=== PATIENT | female | born 1940 | race Caucasian/White ===

== ENCOUNTER → 2016-12-03 | Outpatient (CLI) | payer MEDICARE, BC | LOC: MW.CHFP 09:19 | PROVIDERS: ATTEND Emergency Medicine | DX: I10 Essential (primary) hypertension (principal); E78.5 Hyperlipidemia, unspecified; E11.9 Type 2 diabetes mellitus without complications; E03.9 Hypothyroidism, unspecified | CPT/HCPCS: 36415; 80053; 80061; 82044; 83036; 84443 ==

== ENCOUNTER → 2016-12-04 | Outpatient (CLI) | payer MEDICARE, BC | LOC: MW.CHFP 08:00 | PROVIDERS: ATTEND Emergency Medicine | DX: E11.9 Type 2 diabetes mellitus without complications (principal); I10 Essential (primary) hypertension; E03.9 Hypothyroidism, unspecified; E79.0 Hyperuricemia without signs of inflammatory arthritis and tophaceous disease | CPT/HCPCS: 99214 ==

== ENCOUNTER 2018-05-16 09:57 | Emergency (ER) | payer MEDICARE, BC ==
[2018-05-16] MEDS ORDERED: Sodium Chloride 0.9% 10 ML Syringe FLUSH PRN (10:17)
[2018-05-16] MEDS ORDERED: Sodium Chloride 0.9% 2.5 ML Syringe FLUSH PRN (10:17)
[2018-05-16] MEDS ORDERED: Metoprolol Tartrate 5 MG in Sodium Chloride 0.9% 50 ML IV ONE (10:18)
--- NOTE | 2018-05-16 10:24 | EDM.PDOC ---
ED HPI GENERAL MEDICAL PROBLEM - General Chief Complaint: Cardiovascular Problem Stated Complaint: HEART ISSUES Time Seen by Provider: 05/16/18 10:11 Source of Information: Reports: Patient History Limitations: Reports: No Limitations - History of Present Illness INITIAL COMMENTS - FREE TEXT/NARRATIVE: History of present illness: []Patient's had 2 days of palpitations where she feels like she has to take a deep breath afterwards. She describes it happening or example every fourth, sixth or 10th beat. She states her chest feels tight but she has no pain. Patient states she does feel short of breath but she describes the deep side she has to take after the palpitation as making her feel short of breath. She denies any recent illnesses, fevers, cough, vomiting or diarrhea. She does take thyroid medications and is due for a thyroid check in June. Review of systems: As per history of present illness and below otherwise all systems reviewed and negative. Past medical history: As per history of present illness and as reviewed below otherwise noncontributory. Surgical history: As per history of present illness and as reviewed below otherwise noncontributory. Social history: No reported history of drug or alcohol abuse. Family history: As per history of present illness and as reviewed below otherwise noncontributory. Physical exam: General: Well developed, well nourished in NAD HEENT: Atraumatic, normocephalic, pupils reactive, negative for conjunctival pallor or scleral icterus, mucous membranes moist, throat clear, neck supple, nontender, trachea midline. Lungs: Clear to auscultation, breath sounds equal bilaterally, chest nontender. Heart: S1S2, regular, negative for clicks, rubs, or JVD. Abdomen: Soft, nondistended, nontender. Negative for masses or hepatosplenomegaly. Negative for costovertebral tenderness. Pelvis: Stable nontender. Genitourinary: Deferred. Rectal: Deferred. Extremities: Atraumatic, negative for cords or calf pain. Neurovascular unremarkable. Neuro: Awake, alert, oriented. Cranial nerves II through XII unremarkable. Cerebellum unremarkable. Motor and sensory unremarkable throughout. Exam nonfocal. Skin:warm and dry Diagnostics: CBC, chemistry, troponin, TSH, chest x-ray all negative, occasional PVC's on the monitor Therapeutics: Monitored ED Course: Unremarkable Impression: Premature ventricular contractions Prescriptions: None Plan: Follow-up with primary care Definitive disposition and diagnosis as appropriate pending reevaluation and review of above. Chest Pain Score (Numeric/FACES): 3 - Related Data Allergies Allergy/AdvReac Type Severity Reaction Status Date / Time propoxyphene HCl Allergy panic Verified 05/16/18 10:08 [From Nataliyan] attack Home Meds: Home Meds Acetaminophen 1,000 mg PO ASDIRECTED PRN 09/06/14 [History] Aspirin 325 mg PO QAM 09/06/14 [History] Bimatoprost [Lumigan 0.01% Ophth Soln] 1 drop EYEBOTH BEDTIME 09/06/14 [History] Calcium Carbonate [Calcium] 600 mg PO QAM 09/06/14 [History] Cholecalciferol (Vitamin D3) [Vitamin D3] 1 cap PO QAM 09/06/14 [History] Cinnamon Bark [Cinnamon] 500 mg PO QAM 09/06/14 [History] Fluticasone Propionate [Flonase] 1 - 2 sprays NASBOTH DAILY PRN 09/06/14 [ History] Levothyroxine Sodium [Synthroid] 150 mcg PO QAM 09/06/14 [History] Lisinopril/Hydrochlorothiazide [Lisinopril-Hctz 20-25 mg Tab] 1 tab PO QAM 09/06 [History] Metoprolol Succinate [Toprol XL] 50 mg PO BEDTIME 09/06/14 [History] Multivitamin [Multivitamins] 1 cap PO QAM 09/06/14 [History] Niacin 2 tab PO DAILY 09/06/14 [History] Pravastatin Sodium [Pravastatin (Pravachol)] 40 mg PO BEDTIME 09/06/14 [History] metFORMIN HCl [Metformin HCl ER] 1,500 mg PO DAILY 09/06/14 [History] Allopurinol [Zyloprim] 1 tab PO DAILY 01/05/16 [History] Cetirizine [ZyrTEC] 10 mg PO DAILY PRN 01/05/16 [History] Liraglutide [Victoza] 1.8 mg SUBCUT DAILY 01/05/16 [History] Lutein/Minerals/Vit A,C & E [Ocuvite] 1 tab PO DAILY 01/05/16 [History] Past Medical History HEENT History: Reports: Allergic Rhinitis, Glaucoma, Impaired Vision Other HEENT History: wears glasses Cardiovascular History: Reports: High Cholesterol, Hypertension Respiratory History: Reports: Sleep Apnea Other Respiratory History: uses CPAP Gastrointestinal History: Reports: None Genitourinary History: Reports: None PRESS [employer]CH[employer]ICIAN History: Reports: None Musculoskeletal History: Reports: Gout, Osteoarthritis Neurological History: Reports: None Psychiatric History: Reports: None Endocrine/Metabolic History: Reports: Diabetes, Type II, Hypothyroidism, Obesity /BMI 30+ Hematologic History: Reports: None Immunologic History: Reports: None Oncologic (Cancer) History: Reports: Basal Cell Carcinoma Dermatologic History: Reports: Other (See Below) Other Dermatologic History: basal cell cancer on face, chest and back - Past Surgical History HEENT Surgical History: Reports: Cataract Surgery, Tonsillectomy Female Surgical History: Reports: Breast Biopsy, D&C, Hysterectomy, Salpingo- Oophorectomy, Tubal Ligation Musculoskeletal Surgical History: Reports: Arthroscopic Knee, Knee Replacement Dermatological Surgical History: Reports: Other (See Below) ED ROS GENERAL - Review of Systems Review Of Systems: ROS reveals no pertinent complaints other than HPI. ED EXAM, GENERAL - Physical Exam Exam: See Below (See history of present illness) Course - Vital Signs Last Recorded V/S: Last Vital Signs Temp 96.5 F 05/16/18 10:04 Pulse 82 05/16/18 10:54 Resp 16 05/16/18 10:54 BP 132/59 L 05/16/18 10:54 Pulse Ox 94 L 05/16/18 10:54 - Orders/Labs/Meds Orders: Active Orders 24 hr Category Date Time Status EKG 12 Lead [EKG Documentation Completion] [RC] STAT Care 05/16/18 10:14 Active EKG Documentation Completion [RC] STAT Care 05/16/18 10:17 Inactive Sodium Chloride 0.9% [Saline Flush] Med 05/16/18 10:17 Active 10 ml FLUSH ASDIRECTED PRN Sodium Chloride 0.9% [Saline Flush] Med 05/16/18 10:17 Active 2.5 ml FLUSH ASDIRECTED PRN Saline Lock Insert [OM.PC] Stat Oth 05/16/18 10:17 Ordered Medication Orders Sodium Chloride (Saline Flush) 10 ml FLUSH ASDIRECTED PRN PRN Reason: Keep Vein Open Sodium Chloride (Saline Flush) 2.5 ml FLUSH ASDIRECTED PRN PRN Reason: Keep Vein Open Labs: Laboratory Tests 05/16/18 05/16/18 Range/Units 10:20 10:20 WBC 7.74 (4.0-11.0) K/uL RBC 3.93 L (4.30-5.90) M/uL Hgb 12.6 (12.0-16.0) g/dL Hct 39.2 (36.0-46.0) % MCV 99.7 H (80.0-98.0) fL MCH 32.1 H (27.0-32.0) pg MCHC 32.1 (31.0-37.0) g/dL RDW Std Deviation 51.8 (28.0-62.0) fl RDW Coeff of Luis Armando 14 (11.0-15.0) % Plt Count 216 (150-400) K/uL MPV 9.90 (7.40-12.00) fL Neut % (Auto) 44.3 L (48.0-80.0) % Lymph % (Auto) 42.0 H (16.0-40.0) % [place] % (Auto) 7.5 (0.0-15.0) % Eos % (Auto) 5.8 (0.0-7.0) % Baso % (Auto) 0.4 (0.0-1.5) % Neut # (Auto) 3.4 (1.4-5.7) K/uL Lymph # (Auto) 3.3 H (0.6-2.4) K/uL [place] # (Auto) 0.6 (0.0-0.8) K/uL Eos # (Auto) 0.5 (0.0-0.7) K/uL Baso # (Auto) 0.0 (0.0-0.1) K/uL Nucleated RBC % 0.0 /100WBC Nucleated RBCs # 0 K/uL Sodium 137 (136-145) mmol/L Potassium 4.3 (3.5-5.1) mmol/L Chloride 102 (98-107) mmol/L Carbon Dioxide 23.6 (21.0-32.0) mmol/L BUN 23 H (7.0-18.0) mg/dL Creatinine 1.4 H (0.6-1.0) mg/dL Est Cr Clr Drug Dosing 35.02 mL/min Estimated GFR (MDRD) 36.7 ml/min Glucose 184 H (74-106) mg/dL Calcium 9.1 (8.5-10.1) mg/dL Total Bilirubin 1.0 (0.2-1.0) mg/dL AST 26 (15-37) IU/L ALT 24 (14-63) IU/L Alkaline Phosphatase 60 (46-116) U/L Troponin I < 0.050 (0.000-0.056) ng/mL Total Protein 7.3 (6.4-8.2) g/dL Albumin 3.9 (3.4-5.0) g/dL Globulin 3.4 (2.0-3.5) g/dL Albumin/Globulin Ratio 1.1 L (1.3-2.8) TSH 3rd Generation 1.25 (0.36-3.74) uIU/mL Meds: Medications Generic Name Dose Route Start Last Admin Trade Name Freq PRN Reason Stop Dose Admin Sodium Chloride 10 ml 05/16/18 10:17 Saline Flush FLUSH ASDIRECTED PRN Keep Vein Open Sodium Chloride 2.5 ml 05/16/18 10:17 Saline Flush FLUSH ASDIRECTED PRN Keep Vein Open Discontinued Medications Generic Name Dose Route Start Last Admin Trade Name Freq PRN Reason Stop Dose Admin Metoprolol Tartrate 5 mg 05/16/18 10:48 05/16/18 11:00 Lopressor IV 05/16/18 10:49 Not Given ONETIME ONE Departure - Departure Time of Disposition: 11:27 Disposition: Home, Self-Care 01 Condition: Good Clinical Impression: Premature ventricular contractions Referrals: PCP,None [Primary Care Provider] - Forms: ED Department Discharge Additional Instructions: The following information is given to patients seen in the emergency department who are being discharged to home. This information is to outline your options for follow-up care. We provide all patients seen in our emergency department with a follow-up referral. The need for follow-up, as well as the timing and circumstances, are variable depending upon the specifics of your emergency department visit. If you don't have a primary care physician on staff, we will provide you with a referral. We always advise you to contact your personal physician following an emergency department visit to inform them of the circumstance of the visit and for follow-up with them and/or the need for any referrals to a consulting specialist. The emergency department will also refer you to a specialist when appropriate. This referral assures that you have the opportunity for follow-up care with a specialist. All of these measure are taken in an effort to provide you with optimal care, which includes your follow-up. Under all circumstances we always encourage you to contact your private physician who remains a resource for coordinating your care. When calling for follow-up care, please make the office aware that this follow-up is from your recent emergency room visit. If for any reason you are refused follow-up, please contact the [facility] Emergency Department at and asked to speak to the emergency department charge nurse. Follow-up with primary care decrease caffeine or energy drink use, stay hydrated with water. [facility] [address] [place] [id number] - My Orders Last 24 Hours: My Active Orders 05/16/18 10:14 EKG 12 Lead [EKG Documentation Completion] [RC] STAT 05/16/18 10:17 EKG Documentation Completion [RC] STAT Sodium Chloride 0.9% [Saline Flush] 10 ml FLUSH ASDIRECTED PRN Sodium Chloride 0.9% [Saline Flush] 2.5 ml FLUSH ASDIRECTED PRN Saline Lock Insert [OM.PC] Stat - Assessment/Plan Last 24 Hours: My Active Orders 05/16/18 10:14 EKG 12 Lead [EKG Documentation Completion] [RC] STAT 05/16/18 10:17 EKG Documentation Completion [RC] STAT Sodium Chloride 0.9% [Saline Flush] 10 ml FLUSH ASDIRECTED PRN Sodium Chloride 0.9% [Saline Flush] 2.5 ml FLUSH ASDIRECTED PRN Saline Lock Insert [OM.PC] Stat
[2018-05-16] MEDS ORDERED: Metoprolol Tartrate 5 MG/5 ML SDV IV ONE (10:48)
[2018-05-16 10:55] VITALS: BP 132/59
--- NOTE | 2018-05-16 11:13 | CR ---
EXAMINATION: Portable chest radiograph. HISTORY: Shortness of breath. Comparison: 09/06/2014. FINDINGS: The trachea is midline. The cardiomediastinal silhouette is within normal limits. No pulmonary infilt rates, effusions or pneumothorax. Osseous structures appear unremarkable. IMPRESSION: No acute cardiopulmonary process.
[2018-05-16 11:23] LABS: CHLORIDE,CL 102 mmol/L (98-107); SODIUM,NA 137 mmol/L (136-145)
== END 2018-05-16 15:31 | disposition home or self-care (01) ==
LOC: MW.ED 09:57
DX: I49.3 Ventricular premature depolarization (principal); I10 Essential (primary) hypertension; E11.9 Type 2 diabetes mellitus without complications; E78.00 Pure hypercholesterolemia, unspecified; E03.9 Hypothyroidism, unspecified; M19.90 Unspecified osteoarthritis, unspecified site; Z79.82 Long term (current) use of aspirin; Z79.84 Long term (current) use of oral hypoglycemic drugs; Z79.899 Other long term (current) drug therapy; Z88.8 Allergy status to other drugs, medicaments and biological substances
CPT/HCPCS: 36415; 71045; 71045-26; 80053; 84443; 84484; 85025; 93005; 99285-25

== ENCOUNTER 2022-01-24 08:03 | Day surgery (SDC) | payer MEDICARE, BC ==
[~2022-01-24 08:03] MED LIST: Lactated Ringers 1,000 ML IV SCH
[2022-01-24] MEDS ORDERED: ceFAZolin 2 GM in Premix Bag 1 BAG IV SCH (08:30)
[2022-01-24] MEDS ORDERED: Ropivacaine 0.5% 5 MG/ML 30 ML SDV ONE (09:17)
[2022-01-24] MEDS ORDERED: Octyl 2-Cyanoacrylate 1 Tube ONE (10:55)
[2022-01-24] MEDS ORDERED: Bupivacaine 0.25% 10 ML SDV ONE (10:56)
[2022-01-24] MEDS ORDERED: Midazolam 1 MG/ML 2 ML SDV ONE (11:23)
[2022-01-24] MEDS ORDERED: Ketamine 500 mg/10 ML MDV ONE (11:24)
[2022-01-24] MEDS ORDERED: Ondansetron 4 MG/2 ML SDV ONE (11:41)
[2022-01-24] MEDS ORDERED: Dexamethasone 4 MG/ML 5 ML MDV ONE (11:41)
[2022-01-24] MEDS ORDERED: Propofol 200 MG/20 ML SDV ONE ×2 (11:42→12:06)
[2022-01-24 13:09] VITALS: BP 152/72; PULSE 89
[2022-01-24] MEDS ORDERED: Metoclopramide 10 MG/2 ML SDV IVPUSH ONE (14:06)
[2022-01-24] MEDS ORDERED: Famotidine 20 MG/2 ML SDV IVPUSH ONE (14:06)
[2022-01-24] MEDS ORDERED: Metoclopramide 10 MG/2 ML SDV ONE (14:11)
[2022-01-24] MEDS ORDERED: Famotidine 20 MG/2 ML SDV ONE (14:11)
== END 2022-01-24 14:40 | disposition home or self-care (01) ==
LOC: MW.SDS 08:03
PROVIDERS: ATTEND Orthopaedic Surgery
DX: G56.01 Carpal tunnel syndrome, right upper limb (principal); M65.341 Trigger finger, right ring finger; E11.42 Type 2 diabetes mellitus with diabetic polyneuropathy; G47.33 Obstructive sleep apnea (adult) (pediatric); I12.9 Hypertensive chronic kidney disease with stage 1 through stage 4 chronic kidney disease, or unspecified chronic kidney disease; E78.00 Pure hypercholesterolemia, unspecified; E11.22 Type 2 diabetes mellitus with diabetic chronic kidney disease; E03.9 Hypothyroidism, unspecified; N18.9 Chronic kidney disease, unspecified; Z88.1 Allergy status to other antibiotic agents; Z88.5 Allergy status to narcotic agent; Z79.890 Hormone replacement therapy; Z79.84 Long term (current) use of oral hypoglycemic drugs; Z79.899 Other long term (current) drug therapy
CPT/HCPCS: 82947; A9270-GY; J0131; J0690; J1100; J2250; J2405; J2704; J2765; J2795; J3490; J7120